=== PATIENT | female | born 1945 | race Caucasian/White ===

== ENCOUNTER 2018-02-07 08:49 | Observation (INO) | payer MEDICARE, OTHER ==
[~2018-02-07] VITALS: Ht 167.6 cm; Wt 104.3 kg
[~2018-02-07 08:49] MED LIST: ASPI81EC PO; Alprazolam1 MG PO; CITA20 PO; HYDACE5 PO; HYDCHL25 PO; Simvastatin20 MG PO; VITAMINS; XANAX
[2018-02-07] MEDS ORDERED: CLON.1 PO (09:09)
[2018-02-07] MEDS ORDERED: ESCI10 PO (09:09)
[2018-02-07] MEDS ORDERED: Omeprazole20 M1 PO (09:10)
[2018-02-07] MEDS ORDERED: Klor-Con M1010 MEQ PO (09:11)
[2018-02-07 09:13] LABS: Source, Urine Clean Catch
[2018-02-07 09:34] LABS: BASOPHILS ABSOLUTE AUTO 0.04 K/mm3 (0.00-0.23); BASOPHILS PERCENT AUTO 0 % (0-2); EOSINOPHILS ABSOLUTE AUTO 0.04 K/mm3 (0.00-0.68); EOSINOPHILS PERCENT AUTO 0 % (0-6); Hematocrit 42.3 % (33.0-51.0); Hemoglobin 13.6 g/dL (11.5-16.0); IMMATURE GRAN ABSOLUTE AUTO 0.03 K/mm3 (0.00-0.10); IMMATURE GRAN PERCENT AUTO 0 % (0-1); LYMPHOCYTES ABSOLUTE AUTO 1.09 K/mm3 (0.84-5.20); LYMPHOCYTES PERCENT AUTO 11 % (21-46); MONOCYTES ABSOLUTE AUTO 0.86 K/mm3 (0.16-1.47); MONOCYTES PERCENT AUTO 8 % (4-13); Mean Corpuscular HGB 26.6 pg (26.0-34.0); Mean Corpuscular HGB Conc 32.2 g/dL (31.5-36.5); Mean Corpuscular Volume 83 fL (80-100); Mean Platelet Volume 10.9 fL (9.1-12.4); NEUTROPHILS ABSOLUTE AUTO 8.16 K/mm3 (1.96-9.15); NEUTROPHILS PERCENT AUTO 80 % (41-73); Platelet Count 216 K/mm3 (150-400); RDW Coefficient Variation 13.2 % (11.7-14.2); Red Blood Cell Count 5.11 M/mm3 (3.80-5.20); White Blood Cell Count 10.22 K/mm3 (4.00-11.30)
[2018-02-07 09:45] LABS: Bilirubin, Urine Neg (Neg); Blood, Urine 1+ (Neg); Glucose Qualitative, Urine Neg (Neg); Ketones, Urine Neg (Neg); Leukocyte Esterase, Urine 2+ (Neg); Nitrite, Urine Neg (Neg); Protein, Urine Neg (Neg); Specific Gravity, Urine 1.015 (1.003-1.022); Urobilinogen, Urine NORM (Normal)
[2018-02-07 09:46] LABS: Appearance, Urine Hazy (Clear); Color, Urine Yellow (P-Yellow)
[2018-02-07 09:47] LABS: Bacteria Few /hpf; Squamous Epithelial Cells Mod /hpf (Few)
[2018-02-07 09:49] LABS: Alanine Aminotransfer (ALT/SGP 30 U/L (12-78); Albumin, Blood 3.5 g/dL (3.4-5.0); Albumin/Globulin Ratio 0.9 (0.8-1.8); Alk Phos 70 U/L (50-136); Anion Gap 8 mmol/L (6-16); Aspartate Aminotrans (AST/SGOT 23 U/L (12-37); Bilirubin, Total 0.4 mg/dL (0.1-1.0); Blood Urea Nitrogen 17 mg/dL (8-24); Bun/Creatinine Ratio 20.4 (12.0-20.0); CO2, Blood 28 mmol/L (21-32); Calcium, Blood 9.2 mg/dL (8.5-10.1); Chloride, Blood 104 mmol/L (98-108); Creatinine, Blood 0.83 mg/dL (0.40-1.00); Globulin, Blood 4.1 g/dL (2.2-4.0); Glomerular Filtration Rate >60 (60-); Glucose, Blood 127 mg/dL (70-99); Potassium, Blood 3.8 mmol/L (3.5-5.5); Sodium, Blood 140 mmol/L (136-145); Total Protein, Blood 7.6 g/dL (6.4-8.2)
[2018-02-08] MEDS ORDERED: Augmentin 875-1 EACH PO (09:33)
[2018-02-08] MEDS ORDERED: OXYC5 PO (09:34)
== END 2018-02-08 10:19 | disposition home or self-care (01) ==
LOC: ER 08:49 → SURS 08:50 → ER 13:59 → SURS 13:59
PROVIDERS: Emergency Medicine; Surgery
PROC: 0DTJ4ZZ Resection of Appendix, Percutaneous Endoscopic Approach (ICD-10-PCS; principal; 2018-02-07 13:00)
DX: K35.80 Unspecified acute appendicitis (principal); I10 Essential (primary) hypertension; E78.00 Pure hypercholesterolemia, unspecified; K21.9 Gastro-esophageal reflux disease without esophagitis; Z88.2 Allergy status to sulfonamides; Z79.899 Other long term (current) drug therapy
CPT/HCPCS: 36415; 74176; 80053; 81001; 83690; 85025; 87086; 88304; 93005; 93010; 96361; 96365; 96375; 99285; G0378; J1100; J1885; J2250; J2370; J2405; J2543; J2710; J3010; J7030; J7120

== ENCOUNTER → 2020-01-11 | Outpatient (CLI) | payer MEDICARE, OTHER ==
[~2020-01-11] MED LIST changes: +Augmentin 875-1 EACH PO; +CLON.1 PO; +ESCI10 PO; +Klor-Con M1010 MEQ PO; +OXYC5 PO; +Omeprazole20 M1 PO
== END | disposition home or self-care (01) ==
LOC: PLD 10:53 → LAB SHORT 10:53
DX: C44.02 Squamous cell carcinoma of skin of lip (principal)
CPT/HCPCS: 88305; 88312

== ENCOUNTER 2023-02-05 08:12 | Day surgery (SDC) | payer MEDICARE, OTHER ==
[~2023-02-05] VITALS: Ht 167.6 cm; Wt 103.0 kg
[~2023-02-05 08:12] MED LIST changes: +ZOCOR20 MG PO
--- NOTE | 2023-02-05 09:10 | NUR ---
02/05/23 0910 Mckenzie Hutchinson TETRACAINE DROPS PLACED IN RIGHT EYE AT 0850.
[2023-02-05 10:38] VITALS: BP 165/72
--- NOTE | 2023-02-05 10:49 | NUR ---
02/05/23 1049 LILIANE,DUKE IV REMOVED AT 10:30, SITE WNL, CANULA INTACT. PT TOLERATED PROCEDURE WELL.
== END 2023-02-05 10:49 | disposition home or self-care (01) ==
LOC: ORSCSDS 08:12
PROVIDERS: Student in an Organized Health Care Education/Training Program
PROC: 08RJ3JZ Replacement of Right Lens with Synthetic Substitute, Percutaneous Approach (ICD-10-PCS; principal; 2023-02-05 09:30)
DX: H25.11 Age-related nuclear cataract, right eye (principal); Z96.1 Presence of intraocular lens; H35.3190 Nonexudative age-related macular degeneration, unspecified eye, stage unspecified; I10 Essential (primary) hypertension; Z79.899 Other long term (current) drug therapy
CPT/HCPCS: J2001; J2250; J3010; J7040; V2632